=== PATIENT | male | born 1950 | race African-American/Black ===

== ENCOUNTER 2017-08-16 12:05 | Emergency (ER) | payer MEDICAID, MEDICARE ==
[~2017-08-16] VITALS: Ht 175.3 cm; Wt 91.0 kg
[~2017-08-16 12:05] MED LIST: AMLO5TAB88; GRIS500T; IBUP-2029; TRAM50TA; hctz
[2017-08-16 12:47] VITALS: BP 157/97
[2017-08-16] MEDS ORDERED: IPRATROPIUM/ALBUTEROL 0.5-3(2.5)MG/3ML NEB HHN ONE (13:15)
[2017-08-16 13:27] LABS: BASOPHILS % 0.7 % (0.0-2.0); HEMATOCRIT. 40.7 % (42.0-52.0); HEMOGLOBIN. 13.3 g/dL (14.0-18.0); LYMPHOCYTES % 30.2 % (20.0-50.0); MEAN CORPUSCULAR HEMOGLOBIN 25.4 pg (28.0-32.0); MEAN CORPUSCULAR VOLUME 77.4 fL (80.0-94.0); MEAN PLATELET VOLUME 7.5 fl (7.4-10.4); MONOCYTES % 12.7 % (2.0-8.0); NEUTROPHILS % 55.4 % (40.0-76.0); PLATELET 353 x1000/uL (130-400); RED BLOOD CELL COUNT 5.25 mill/uL (4.7-6.1); RED CELL DISTRIBUTION WIDTH 16.2 % (11.6-14.6)
[2017-08-16 13:42] LABS: CARBON DIOXIDE 25 mEq/L (21-32); CHLORIDE 106 mEq/L (98-107); TROPONIN I < 0.02 ng/mL (0.00-0.04)
== END 2017-08-16 15:49 | disposition home or self-care (01) ==
LOC: ER 12:50
DX: J30.9 Allergic rhinitis, unspecified (principal); D64.9 Anemia, unspecified; I10 Essential (primary) hypertension; F12.10 Cannabis abuse, uncomplicated; Z98.890 Other specified postprocedural states
CPT/HCPCS: 36415; 71010; 80053; 84484; 85025; 94640; 99285; J7620

== ENCOUNTER 2017-11-20 07:22 | Emergency (ER) | payer MEDICARE, MEDICAID ==
[~2017-11-20] VITALS: Ht 175.3 cm; Wt 82.0 kg
[2017-11-20 09:34] VITALS: BP 169/95
== END 2017-11-20 09:40 | disposition home or self-care (01) ==
LOC: ER 07:48
DX: G89.29 Other chronic pain (principal); M54.5 Low back pain; I10 Essential (primary) hypertension; F12.10 Cannabis abuse, uncomplicated
CPT/HCPCS: 99283

== ENCOUNTER 2018-05-15 11:37 | Emergency (ER) | payer MEDICARE, MEDICAID ==
[~2018-05-15] VITALS: Ht 175.3 cm; Wt 82.0 kg
[2018-05-15 12:03] VITALS: BP 151/97
== END 2018-05-15 15:24 | disposition left against medical advice (07) ==
LOC: ER 13:14
DX: S50.12XA Contusion of left forearm, initial encounter (principal); I10 Essential (primary) hypertension; X58.XXXA Exposure to other specified factors, initial encounter; Y93.89 Activity, other specified; Y92.013 Bedroom of single-family (private) house as the place of occurrence of the external cause
CPT/HCPCS: 99281

== ENCOUNTER 2018-07-07 10:36 | Emergency (ER) | payer MEDICARE, MEDICAID ==
[~2018-07-07] VITALS: Ht 175.3 cm; Wt 82.1 kg
[2018-07-07] MEDS ORDERED: ACETAMINOPHEN 500MG TABLET PO ONE (12:00)
[2018-07-07 12:52] VITALS: BP 138/96
== END 2018-07-07 12:53 | disposition home or self-care (01) ==
LOC: ER 10:36
DX: M25.511 Pain in right shoulder (principal); I10 Essential (primary) hypertension; Z98.890 Other specified postprocedural states
CPT/HCPCS: 73030; 99284

== ENCOUNTER 2019-01-31 07:35 | Emergency (ER) | payer MEDICARE, MEDICAID ==
[~2019-01-31] VITALS: Ht 175.3 cm; Wt 79.0 kg
[2019-01-31 10:15] VITALS: BP 139/81
== END 2019-01-31 10:19 | disposition home or self-care (01) ==
LOC: ER 07:35
DX: S50.11XA Contusion of right forearm, initial encounter (principal); X58.XXXA Exposure to other specified factors, initial encounter; Y93.9 Activity, unspecified; Y92.89 Other specified places as the place of occurrence of the external cause
CPT/HCPCS: 99283

== ENCOUNTER 2019-05-23 15:07 | Emergency (ER) | payer MEDICARE, MEDICAID ==
[~2019-05-23] VITALS: Ht 175.3 cm; Wt 77.0 kg
[2019-05-23] MEDS ORDERED: KETOROLAC 15MG/ML VIAL IM ONE (18:15)
[2019-05-23] MEDS ORDERED: BACITRACIN ZINC OINT UDPKT TOP ONE (18:15)
[2019-05-23] MEDS ORDERED: BACITRACIN 15GM TUBE TOP NR (18:30)
[2019-05-23 18:55] VITALS: BP 132/86
== END 2019-05-23 19:00 | disposition home or self-care (01) ==
LOC: ER 15:07
DX: S61.211A Laceration without foreign body of left index finger without damage to nail, initial encounter (principal); W26.0XXA Contact with knife, initial encounter; Y93.89 Activity, other specified; Y92.89 Other specified places as the place of occurrence of the external cause; Y99.0 Civilian activity done for income or pay
CPT/HCPCS: 96372; 99283; J1885

== ENCOUNTER 2019-09-02 07:58 | Emergency (ER) | payer MEDICARE, MEDICAID ==
[~2019-09-02] VITALS: Ht 175.3 cm; Wt 82.0 kg
[2019-09-02] MEDS ORDERED: KETOROLAC 15MG/ML VIAL IM ONE (09:00)
[2019-09-02 10:52] VITALS: BP 146/78
== END 2019-09-02 11:06 | disposition home or self-care (01) ==
LOC: ER 07:58
DX: M25.512 Pain in left shoulder (principal); I10 Essential (primary) hypertension; Z98.890 Other specified postprocedural states; Z79.899 Other long term (current) drug therapy
CPT/HCPCS: 71045; 73030; 93005; 96372; 99283; J1885; A4565

== ENCOUNTER 2020-03-23 09:03 | Emergency (ER) | payer MEDICARE, MEDICAID ==
[~2020-03-23] VITALS: Ht 175.3 cm; Wt 79.0 kg
[2020-03-23] MEDS ORDERED: LIDOCAINE 5% PATCH TOP STA (10:09)
[2020-03-23] MEDS ORDERED: KETOROLAC 30MG/ML VIAL IM ONE (10:15)
[2020-03-23] MEDS ORDERED: ACETAMINOPHEN 500MG TABLET PO ONE (10:15)
[2020-03-23 12:02] VITALS: BP 163/102
== END 2020-03-23 13:06 | disposition home or self-care (01) ==
LOC: ER 09:03
DX: M54.5 Low back pain (principal); I10 Essential (primary) hypertension; Z79.899 Other long term (current) drug therapy; Z98.890 Other specified postprocedural states
CPT/HCPCS: 72100; 96372; 99283; J1885

== ENCOUNTER 2021-12-19 13:02 | Emergency (ER) | payer MEDICARE, MEDICAID ==
[~2021-12-19] VITALS: Ht 177.8 cm; Wt 70.0 kg
[~2021-12-19 13:02] MED LIST changes: -GRIS500T; +GRIS500T6
[2021-12-19 13:07] VITALS: BP 148/96
[2021-12-19] MEDS ORDERED: CARB15DR63 EACH EAR (14:10)
== END 2021-12-19 14:31 | disposition home or self-care (01) ==
LOC: ER 13:02
DX: H61.23 Impacted cerumen, bilateral (principal); M72.2 Plantar fascial fibromatosis; I10 Essential (primary) hypertension
CPT/HCPCS: 99281

== ENCOUNTER 2022-09-03 15:42 | Inpatient (IN) | payer MEDICARE, MEDICAID ==
[~2022-09-03] VITALS: Ht 172.7 cm; Wt 79.4 kg
[~2022-09-03 15:42] MED LIST changes: +CARB15DR63 EACH EAR
[2022-09-03 16:58] LABS: BASOPHILS % 0.3 % (0.0-2.0); EOSINOPHILS % 0.2 % (0.0-5.0); HEMATOCRIT. 42.8 % (42.0-52.0); HEMOGLOBIN. 14.3 g/dL (14.0-18.0); LYMPHOCYTES % 18.1 % (20.0-50.0); MEAN CORPUSCULAR HEMOGLOBIN 29.8 pg (28.0-32.0); MEAN CORPUSCULAR VOLUME 88.8 fL (80.0-94.0); MEAN PLATELET VOLUME 7.3 fl (7.4-10.4); MONOCYTES % 6.6 % (2.0-8.0); NEUTROPHILS % 74.8 % (40.0-76.0); PLATELET 312 x1000/uL (130-400); RED BLOOD CELL COUNT 4.82 mill/uL (4.7-6.1)
[2022-09-03] MEDS ORDERED: LORAZEPAM 2MG/ML CPJ IV ONE (17:00)
[2022-09-03] MEDS ORDERED: LEVETIRACETAM 500MG PREMIX 100 ML IV ONE ×2 (17:00)
[2022-09-03 17:07] LABS: CHLORIDE 98 mEq/L (98-107)
[2022-09-03 17:14] LABS: ETHANOL BLOOD < 10 mg/dL
[2022-09-03 22:31] LABS: CLARITY URINE CLEAR (CLEAR); COLOR URINE YELLOW (YELLOW); KETONES URINE NEGATIVE (NEGATIVE); LEUKOCYTE ESTERASE URINE NEGATIVE (NEGATIVE); NITRITE URINE NEGATIVE (NEGATIVE); OCCULT BLOOD URINE NEGATIVE (NEGATIVE); PH URINE 6.5 (4.5-8.0); PROTEIN URINE TRACE (NEGATIVE); SPECIFIC GRAVITY URINE 1.018 (1.005-1.030)
[2022-09-03 22:44] LABS: *AMPHETAMINES SCREEN URINE NEGATIVE (NEGATIVE); *BARBITURATES SCREEN URINE NEGATIVE (NEGATIVE); *BENZODIAZEPINES SCREEN URINE NEGATIVE (NEGATIVE); *COCAINE SCREEN URINE NEGATIVE (NEGATIVE); CANNABINOID URINE SCREEN PRESUMTIVE POSITIVE (NEGATIVE); METHADONE URINE SCREEN PRESUMTIVE POSITIVE (NEGATIVE); OPIATES URINE SCREEN NEGATIVE (NEGATIVE); PHENCYCLIDINE URINE SCREEN NEGATIVE (NEGATIVE)
[2022-09-04 05:45] VITALS: BP 146/89
[2022-09-04] MEDS ORDERED: METH-817 MT (07:06)
[2022-09-04] MEDS ORDERED: HYDROCODONE/ACETAMINOPHEN 5/325MG TABLET PO PRN (07:30)
[2022-09-04 08:00] VITALS: BP 124/82
[2022-09-04] MEDS: LEVETIRACETAM 500MG TABLET PO SCH ×2 (09:29→20:34)
[2022-09-04 12:21] VITALS: BP 138/98
[2022-09-04 16:05] VITALS: BP 136/78
[2022-09-04] MEDS ORDERED: NALOXONE HCL 0.4MG/ML VIAL IV PRN (17:30)
[2022-09-04 20:00] VITALS: BP 128/84
[2022-09-04] MEDS ORDERED: LORAZEPAM 0.5MG TABLET PO PRN (23:30)
[2022-09-05] VITALS: BP 124/75
[2022-09-05] MEDS: THIAMINE HCL 100MG TABLET PO SCH ×2 (01:16→10:23)
[2022-09-05 04:00] VITALS: BP 135/92
[2022-09-05 08:00] VITALS: BP 129/85
[2022-09-05] MEDS: LEVETIRACETAM 500MG TABLET PO SCH (10:23)
[2022-09-05 12:00] VITALS: BP 135/86
[2022-09-05 16:00] VITALS: BP 135/84
[2022-09-05 18:30] VITALS: BP 135/78
== END 2022-09-05 18:40 | disposition home or self-care (01) | DRG 100 ==
LOC: ER 15:50 → MICUSO 20:28 → 6WST 09-04 06:00
PROVIDERS: ADMIT Internal Medicine; ATTEND Internal Medicine
PROC: 4A00X4Z Measurement of Central Nervous Electrical Activity, External Approach (ICD-10-PCS; principal; 2022-09-05)
DX: G40.901 Epilepsy, unspecified, not intractable, with status epilepticus (principal); G92.9 Unspecified toxic encephalopathy; F10.239 Alcohol dependence with withdrawal, unspecified; I10 Essential (primary) hypertension; F17.210 Nicotine dependence, cigarettes, uncomplicated; Z86.73 Personal history of transient ischemic attack (TIA), and cerebral infarction without residual deficits
CPT/HCPCS: 36415; 70551; 71045; 80053; 80305; 80320; 81003; 84484; 85025; 93005; 95816; 99285; J1953; J2060; G0480

== ENCOUNTER 2022-12-22 12:46 | Inpatient (IN) | payer MEDICARE, MEDICAID ==
[~2022-12-22] VITALS: Ht 175.3 cm; Wt 76.2 kg
[~2022-12-22 12:46] MED LIST changes: +METH-817 MT
[2022-12-22] MEDS ORDERED: LEVETIRACETAM 500MG TABLET PO ONE (13:00)
[2022-12-22] MEDS ORDERED: LORAZEPAM 2MG/ML CPJ IV NR (13:15)
[2022-12-22] MEDS ORDERED: LEVETIRACETAM 500MG PREMIX 100 ML IV ONE (13:45)
[2022-12-22 13:48] LABS: CHLORIDE 97 mEq/L (98-107)
[2022-12-22 13:59] LABS: BASOPHILS % 0.4 % (0.0-2.0); EOSINOPHILS % 1.3 % (0.0-5.0); HEMATOCRIT. 40.1 % (42.0-52.0); HEMOGLOBIN. 13.5 g/dL (14.0-18.0); LYMPHOCYTES % 38.7 % (20.0-50.0); MEAN CORPUSCULAR HEMOGLOBIN 29.7 pg (28.0-32.0); MEAN CORPUSCULAR VOLUME 87.8 fL (80.0-94.0); MEAN PLATELET VOLUME 7.3 fl (7.4-10.4); MONOCYTES % 11.7 % (2.0-8.0); NEUTROPHILS % 47.9 % (40.0-76.0); PLATELET 302 x1000/uL (130-400); RED BLOOD CELL COUNT 4.57 mill/uL (4.7-6.1); RED CELL DISTRIBUTION WIDTH 15.2 % (11.6-14.6)
[2022-12-22 14:42] LABS: ETHANOL BLOOD < 10 mg/dL
[2022-12-22] MEDS ORDERED: CLONIDINE 0.1MG TABLET PO PRN (16:45)
[2022-12-22] MEDS ORDERED: IPRATROPIUM/ALBUTEROL 0.5-3(2.5)MG/3ML NEB HHN PRN (16:45)
[2022-12-22] MEDS ORDERED: ACETAMINOPHEN 325MG TABLET PO PRN (16:45)
[2022-12-22] MEDS ORDERED: ONDANSETRON HCL 4MG/2ML INJ IV PRN (16:45)
[2022-12-22] MEDS ORDERED: MVI, ADULT NO.1 10 ML, FOLIC ACID 1 MG, THIAMINE HCL 100 MG in SODIUM CHLORIDE 0.9% 1,0... IV ONE ×4 (17:30)
[2022-12-22] MEDS ORDERED: FAMOTIDINE 20MG TABLET PO NR (21:15)
[2022-12-22] MEDS ORDERED: LORAZEPAM 2MG/ML CPJ IV PRN (21:15)
[2022-12-22] MEDS: ENOXAPARIN 40MG/0.4ML SYR SUBCUT SCH (21:53)
[2022-12-23 00:25] LABS: CREATINE KINASE 186 IU/L (39-308); CREATINE KINASE MB FRACTION 2.5 ng/mL (0.5-3.6)
[2022-12-23 05:30] LABS: BASOPHILS % 0.5 % (0.0-2.0); EOSINOPHILS % 0.4 % (0.0-5.0); HEMATOCRIT. 39.1 % (42.0-52.0); HEMOGLOBIN. 13.3 g/dL (14.0-18.0); LYMPHOCYTES % 27.2 % (20.0-50.0); MEAN CORPUSCULAR HEMOGLOBIN 29.6 pg (28.0-32.0); MEAN PLATELET VOLUME 7.4 fl (7.4-10.4); MONOCYTES % 13.2 % (2.0-8.0); NEUTROPHILS % 58.7 % (40.0-76.0); PLATELET 272 x1000/uL (130-400); RED CELL DISTRIBUTION WIDTH 15.6 % (11.6-14.6)
[2022-12-23 05:49] LABS: CHLORIDE 101 mEq/L (98-107)
[2022-12-23 06:14] LABS: CREATINE KINASE 213 IU/L (39-308)
[2022-12-23 09:00] VITALS: BP 143/86
[2022-12-23] MEDS ORDERED: ALBUTEROL (0.083%) 2.5MG/3ML NEB HHN PRN (09:15)
[2022-12-23] MEDS ORDERED: IPRATROPIUM BROMIDE (0.02%) 0.5MG/2.5ML NEB HHN PRN (09:15)
[2022-12-23] MEDS ORDERED: NALOXONE HCL 0.4MG/ML VIAL IV PRN (09:30)
[2022-12-23] MEDS ORDERED: KEPP250 PO (09:33)
[2022-12-23 12:00] VITALS: BP 131/69
[2022-12-23] MEDS ORDERED: LORAZEPAM 1MG TABLET PO PRN (15:00)
[2022-12-23 16:00] VITALS: BP 145/100
[2022-12-23] MEDS ORDERED: THIAMINE HCL 100 MG in SODIUM CHLORIDE 0.9% 49 ML IV NR (16:00)
[2022-12-23] MEDS ORDERED: PNEUMOCOCCAL 23-VAL P-SAC VAC 0.5 ML IM ONE (18:45)
[2022-12-23 20:00] VITALS: BP 134/88
[2022-12-23] MEDS: LEVETIRACETAM 500MG TABLET PO SCH (20:28)
[2022-12-23] MEDS: ENOXAPARIN 40MG/0.4ML SYR SUBCUT SCH (20:28)
[2022-12-23 21:45] LABS: CLARITY URINE CLEAR (CLEAR); COLOR URINE YELLOW (YELLOW); KETONES URINE 1+ (NEGATIVE); LEUKOCYTE ESTERASE URINE NEGATIVE (NEGATIVE); NITRITE URINE NEGATIVE (NEGATIVE); OCCULT BLOOD URINE TRACE (NEGATIVE); PROTEIN URINE 1+ (NEGATIVE); SPECIFIC GRAVITY URINE 1.018 (1.005-1.030)
[2022-12-23 22:11] LABS: *AMPHETAMINES SCREEN URINE NEGATIVE (NEGATIVE); *BARBITURATES SCREEN URINE NEGATIVE (NEGATIVE); *BENZODIAZEPINES SCREEN URINE NEGATIVE (NEGATIVE); *COCAINE SCREEN URINE NEGATIVE (NEGATIVE); CANNABINOID URINE SCREEN PRESUMTIVE POSITIVE (NEGATIVE); METHADONE URINE SCREEN PRESUMTIVE POSITIVE (NEGATIVE); OPIATES URINE SCREEN NEGATIVE (NEGATIVE); PHENCYCLIDINE URINE SCREEN NEGATIVE (NEGATIVE)
[2022-12-23 23:11] LABS: HEPATITIS B SURFACE ANTIGEN NEGATIVE
[2022-12-24] VITALS: BP 115/67
[2022-12-24 04:00] VITALS: BP 139/94
[2022-12-24] MEDS ORDERED: THIAMINE HCL 100MG TABLET PO SCH (09:00)
[2022-12-24] MEDS: HYDROCODONE/ACETAMINOPHEN 5/325MG TABLET PO PRN ×2 (09:08→13:35)
[2022-12-24] MEDS: LEVETIRACETAM 500MG TABLET PO SCH (09:08)
[2022-12-24 13:35] VITALS: BP 139/94
[2022-12-24] MEDS ORDERED: KEPP500 PO (17:10)
[2022-12-24] MEDS ORDERED: THIA100T72 PO (17:10)
== END 2022-12-24 18:30 | disposition home or self-care (01) | DRG 101 ==
LOC: ER 12:46 → MICUSO 15:17 → EDBEDREQ 15:22 → 7EST 12-23 09:09
PROVIDERS: ADMIT Internal Medicine; ATTEND Internal Medicine
PROC: 4A00X4Z Measurement of Central Nervous Electrical Activity, External Approach (ICD-10-PCS; principal; 2022-12-24)
DX: G40.909 Epilepsy, unspecified, not intractable, without status epilepticus (principal); F10.239 Alcohol dependence with withdrawal, unspecified; I10 Essential (primary) hypertension; Z86.73 Personal history of transient ischemic attack (TIA), and cerebral infarction without residual deficits; F10.21 Alcohol dependence, in remission
CPT/HCPCS: 36415; 71045; 80053; 80305; 80320; 81003; 82550; 82553; 83735; 84484; 85025; 86803; 87340; 90732; 99285; J1650; J1953; J2060; J3411; J3490; J7030; G0480

== ENCOUNTER 2023-05-14 09:59 | Emergency (ER) | payer MEDICARE, MEDICAID ==
[~2023-05-14] VITALS: Ht 175.3 cm; Wt 74.0 kg
[~2023-05-14 09:59] MED LIST changes: +KEPP250 PO; +KEPP500 PO; +THIA100T72 PO
[2023-05-14 10:19] VITALS: TEMP 98.2; O2SAT 100
[2023-05-14 10:30] VITALS: BP 88/57; PULSE 103; RESP 20
[2023-05-14] MEDS ORDERED: LIDOCAINE 5% PATCH TOP SCH (10:30)
[2023-05-14] MEDS ORDERED: KETOROLAC 30MG/ML VIAL IM ONE (10:30)
[2023-05-14] MEDS ORDERED: ACYC200C31 PO (10:34)
[2023-05-14] MEDS ORDERED: LIDO700A15 TP (10:34)
[2023-05-14] MEDS ORDERED: TOPUD MT (10:41)
[2023-05-14] MEDS ORDERED: NAPR-681 MT (10:41)
== END 2023-05-14 11:04 | disposition home or self-care (01) ==
LOC: ER 09:59
DX: B02.9 Zoster without complications (principal); I10 Essential (primary) hypertension; Z79.899 Other long term (current) drug therapy; Z86.59 Personal history of other mental and behavioral disorders
CPT/HCPCS: 99283; 96372; J1885

== ENCOUNTER 2025-01-11 13:32 | Emergency (ER) | payer BC, MEDICAID, MEDICARE ==
[~2025-01-11] VITALS: Ht 182.9 cm; Wt 77.0 kg
[~2025-01-11 13:32] MED LIST changes: +ACYC200C31 PO; -KEPP250 PO; +NAPR-681 MT; +TOPUD MT
[2025-01-11 13:34] VITALS: O2SAT 100
[2025-01-11] MEDS: LEVETIRACETAM 1000MG PREMIX 100 ML IV ONE (14:05)
[2025-01-11] MEDS: SODIUM CHLORIDE 0.9% 1,000 ML IV ONE (14:06)
[2025-01-11 14:11] LABS: BASOPHILS % 0.2 % (0.0-2.0); EOSINOPHILS % 0.1 % (0.0-5.0); HEMATOCRIT. 40.6 % (42.0-52.0); HEMOGLOBIN. 13.6 g/dL (14.0-18.0); MEAN CORPUSCULAR HEMOGLOBIN 30.1 pg (28.0-32.0); MEAN CORPUSCULAR HGB CONC 33.5 g/dL (31.0-37.0); MEAN CORPUSCULAR VOLUME 89.6 fL (80.0-94.0); MEAN PLATELET VOLUME 7.6 fl (7.4-10.4); MONOCYTES % 6.5 % (2.0-8.0); NEUTROPHILS % 78.2 % (40.0-76.0); PLATELET 308 x1000/uL (130-400); RED BLOOD CELL COUNT 4.53 mill/uL (4.7-6.1); RED CELL DISTRIBUTION WIDTH 15.4 % (11.6-14.6); WHITE BLOOD COUNT 6.6 x1000/uL (4.5-11.0)
[2025-01-11 14:13] LABS: CHLORIDE 103 mEq/L (98-107); POTASSIUM 3.9 mEq/L (3.5-5.1); SODIUM 136 mEq/L (136-145)
[2025-01-11 14:14] LABS: CARBON DIOXIDE 24 mEq/L (21-32)
[2025-01-11 14:34] LABS: PROTHROMBIN TIME 10.9 sec (9.6-11.0)
[2025-01-11 15:08] LABS: CALCIUM 9.3 mg/dL (8.7-10.4)
[2025-01-11 15:12] LABS: GLUCOSE 105 mg/dL (70-105); UREA NITROGEN BLOOD 26 mg/dL (9-23)
[2025-01-11 15:23] LABS: CREATININE 1.3 mg/dL (0.6-1.3); ETHANOL BLOOD < 10 mg/dL (<10)
[2025-01-11 15:39] LABS: CLARITY URINE CLEAR (CLEAR); COLOR URINE YELLOW (YELLOW); GLUCOSE URINE NEGATIVE (NEGATIVE); KETONES URINE NEGATIVE (NEGATIVE); LEUKOCYTE ESTERASE URINE NEGATIVE (NEGATIVE); NITRITE URINE NEGATIVE (NEGATIVE); OCCULT BLOOD URINE NEGATIVE (NEGATIVE); PH URINE 5.5 (4.5-8.0); PROTEIN URINE TRACE (NEGATIVE); SPECIFIC GRAVITY URINE 1.016 (1.005-1.030); UROBILINOGEN URINE 0.2 E.U./dL (0.2-1.0)
[2025-01-11] MEDS ORDERED: LEVE1000 MT (15:50)
[2025-01-11 15:55] VITALS: BP 99/57; PULSE 63; RESP 16; TEMP 36.6; O2SAT 96
[2025-01-11 16:12] LABS: *AMPHETAMINES SCREEN URINE NEGATIVE (NEGATIVE); *BARBITURATES SCREEN URINE NEGATIVE (NEGATIVE); *BENZODIAZEPINES SCREEN URINE NEGATIVE (NEGATIVE); BACTERIA URINE TRACE; RBC URINE NONE SEEN /hpf (0-2); SQUAMOUS EPITHELIAL CELL URINE FEW /lpf (RARE/1+); WBC URINE 0-2 /hpf (0-2)
[2025-01-11 16:13] LABS: *COCAINE SCREEN URINE NEGATIVE (NEGATIVE); CANNABINOID URINE SCREEN PRESUMPTIVE POSITIVE (NEGATIVE); ECSTASY MDMA SCREEN URINE NEGATIVE (NEGATIVE); METHADONE URINE SCREEN NEGATIVE (NEGATIVE); OPIATES URINE SCREEN NEGATIVE (NEGATIVE); PHENCYCLIDINE URINE SCREEN NEGATIVE (NEGATIVE)
== END 2025-01-11 16:35 | disposition home or self-care (01) ==
LOC: ER 13:32
DX: G40.909 Epilepsy, unspecified, not intractable, without status epilepticus (principal); I10 Essential (primary) hypertension; Z79.899 Other long term (current) drug therapy
CPT/HCPCS: 80305; 80048; 81003; 80320; 85025; 85610; 36415; 96365; 99284; J1953; J7030; G0480

== ENCOUNTER 2025-05-01 03:13 | Emergency (ER) | payer BC ==
[~2025-05-01] VITALS: Ht 167.6 cm; Wt 68.0 kg
[~2025-05-01 03:13] MED LIST changes: +LEVE1000 MT
[2025-05-01 03:16] VITALS: TEMP 36.5; O2SAT 99
[2025-05-01] MEDS: FAMOTIDINE 20MG/2ML VIAL IV ONE (04:07)
[2025-05-01] MEDS: DIPHENHYDRAMINE 50MG/ML VIAL IV ONE (04:08)
[2025-05-01] MEDS: DEXAMETHASONE 10 MG/ML VIAL IV ONE (04:08)
[2025-05-01 04:13] LABS: BASOPHILS % 0.7 % (0.0-2.0); EOSINOPHILS % 1.8 % (0.0-5.0); HEMATOCRIT. 40.7 % (42.0-52.0); HEMOGLOBIN. 13.6 g/dL (14.0-18.0); LYMPHOCYTES % 32.5 % (20.0-50.0); MEAN PLATELET VOLUME 7.9 fl (7.4-10.4); MONOCYTES % 12.6 % (2.0-8.0); NEUTROPHILS % 52.4 % (40.0-76.0); PLATELET 264 x1000/uL (130-400); RED BLOOD CELL COUNT 4.47 mill/uL (4.7-6.1); RED CELL DISTRIBUTION WIDTH 15.4 % (11.6-14.6)
[2025-05-01 04:25] LABS: CREATININE 1.0 mg/dL (0.6-1.3); UREA NITROGEN BLOOD 17 mg/dL (9-23)
[2025-05-01] MEDS ORDERED: B50 MT (04:54)
[2025-05-01] MEDS ORDERED: PRED10TA MT (04:54)
[2025-05-01 05:04] VITALS: BP 123/81; PULSE 68; RESP 19; O2SAT 96
== END 2025-05-01 07:34 | disposition home or self-care (01) ==
LOC: ER 03:13
DX: R22.0 Localized swelling, mass and lump, head (principal); T49.3X1A Poisoning by emollients, demulcents and protectants, accidental (unintentional), initial encounter; I10 Essential (primary) hypertension; Z79.1 Long term (current) use of non-steroidal anti-inflammatories (NSAID); Z79.52 Long term (current) use of systemic steroids; Y92.89 Other specified places as the place of occurrence of the external cause
CPT/HCPCS: 99291; 96374; 96375; 80048; 85025; 36415; J1100; J1200; J1308